=== PATIENT | female | born 1975 | race Caucasian/White ===

== ENCOUNTER 2022-12-09 10:11 | Emergency (ER) | payer BC ==
[~2022-12-09] VITALS: Ht 160 cm; Wt 82.6 kg
[2022-12-09] MEDS ORDERED: ALPRAZOLAM0.5 MG PO (10:36)
== END 2022-12-09 15:10 | disposition home or self-care (01) ==
LOC: ER 10:11
DX: M25.561 Pain in right knee (principal); M71.21 Synovial cyst of popliteal space [Baker], right knee